=== PATIENT | female | born 1945 | race African-American/Black ===

== ENCOUNTER 2017-04-06 12:46 | Inpatient (IN) | payer OTHER ==
[~2017-04-06] VITALS: Ht 149.9 cm; Wt 44.0 kg
--- NOTE | ~2017-04-06 | EKG ---
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
--- NOTE | ~2017-04-06 | S ---
[facility] [place] [address] SURGICAL PATH RPT PROCEDURE Name: CHECOCINTHYAROYALChantelle Drake Room #: 313-P ADM IN M.R.#: [id number] Admission: 04/06/17 Date of : 49 Discharge: Report #: [id number] Path Case #: [id number] PATHOLOGY REPORT COLLECTION DATE: 04/06/2017 RECEIVED DATE: 04/08/2017 SUBMITTING PHYS: Dr. Ricardo Collins OTHER PHYS: Dr. Suzie Vallecillo SPECIMEN(S) RECEIVED: A.Small bowel B.Biopsy of gastritis to rule out Hpylori * * * * * * * * * * * * FINAL DIAGNOSIS: A. Small intestinal mucosa "small bowel": - No obvious diagnostic changes. - There is no evidence of acute cryptitis, granulomas, adenomatous change or malignancy. - There is no evidence of Sprue. B. Gastric biopsy, "biopsy of gastritis to rule out H. pylori": - Mild chronic reactive gastropathy with very minimal mild inflammation. - Immunoperoxidase for Helicobacter pylori is negative. (SHA:pit; 04/09/2017) PATHOLOGIST: Panfilo Vazquez M.D. REPORT ELECTRONICALLY SIGNED BY: Panfilo Vazquez M.D. DATE/TIME: 04/09/2017 12:46 * * * * * * * * * * * * GROSS PATHOLOGY: A. Received in formalin labeled "Uriel Kingsley, biopsy of small bowel to R/O celiac," are two segments of reynoso soft tissue measuring 0.5 x 0.5 x 0.1 cm in aggregate dimensions and ranging from 0.3 to 0.5 cm in maximum dimension. The specimen is submitted entirely in cassette A1. B. Received in formalin labeled "Uriel Kingsley, biopsy gastritis to R/O H. pylori," are two segments of reynoso soft tissue measuring 0.5 x 0.4 x 0.1 cm in aggregate dimensions and ranging from 0.3 to 0.5 cm in maximum dimension. The specimen is submitted entirely in cassette B1. (CAA; 04/08/2017) CLINICAL HISTORY: [address] [address] SURGICAL PATH RPT PROCEDURE Name: URIEL KINGSLEY Room #: 313-P ADM IN M.R.#: [id number] Admission: 04/06/17 Date of : 49 Discharge: Report #: [id number] Path Case #: [id number] Anemia, GI bleed A. R/O celiac B. R/O H. pylori INITIAL CPT CODE(S): A; 90193 B; 44094, 80989 Professional services performed by [facility] at [address], [place] [address] Technical services performed by [facility] at [address] [place] [address], [address] [address]. [facility] [address] [address] PHONE: [phone] DIRECTOR: Dheeraj W. Mary, M.D. * * * END OF REPORT * * *
[~2017-04-06 12:46] MED LIST: ALPHA LIPOIC A100 MG; AMANTADINE 100100 MG; ASPIR 8181 MG PO; ATORVASTATIN CA40 MG PO; CO Q-10100 MG; ENDUR-ACIN500 MG; FLONASE 0.05%50 MCG NASAL; FOLIC ACID 40400 MCG; IBUPROFEN 200200 M1; L-ARGININE500 MG; MAGNESIUM; MYSOLINE250 M1; NORCO 5-325 TA1 EACH PO; OMEGA-3 KRILL1 EAC4; OYSTER SHELL C500 MG; PTEROSTILBENE; TRAMADOL 50 MG50 MG PO; VITAMIN B1; VITAMIN B125000 MCG; VITAMIN B6; VITAMIN C500 M1 PO; VITAMIN D3400 UNIT; [UNRECOGNIZED DRUG - OTHER]
[2017-04-06 12:47] VITALS: BP 109/56
[2017-04-06 13:31] LABS: BASOPHILS 0.4 % (0.0-2.0); RBC 1.55 mil/uL (4.20-5.00)
[2017-04-06 13:33] LABS: ABSOLUTE NEUTROPHILS 3.8 thou/uL (1.4-8.2); EOSINOPHILS 1.2 % (0.0-3.0); LYMPHOCYTES 25.6 % (24.0-44.0); MCH 33.7 pg (26.0-34.0); MCHC 34.2 g/dL (28.0-37.0); MCV 98.6 fL (80.0-100.0); PLATELET COUNT 103 thou/uL (150-400); POLYS 66.8 % (36.0-66.0); RDW 13.9 % (10.5-14.5); WBC 5.7 thou/uL (4.0-11.0)
[2017-04-06 13:34] LABS: MANUAL DIFF NO
[2017-04-06 13:37] LABS: ANION GAP 8 mmol/L (7-16); BUN 34 mg/dL (7-18); CALCIUM 7.6 mg/dL (8.5-10.1); CHLORIDE 111 mmol/L (98-107); CO2 25 mmol/L (21-32); CREATININE 0.8 mg/dL (0.6-1.0); GLUCOSE 140 mg/dL (74-106); HEMATOCRIT 15.3 % (37.0-47.0); HEMOGLOBIN 5.2 gm/dL (12.0-15.0); POTASSIUM 3.9 mmol/L (3.5-5.1); SODIUM 144 mmol/L (136-145)
[2017-04-06 13:42] LABS: ALBUMIN 2.3 g/dL (3.4-5.0); ALKALINE PHOSPHATASE 69 U/L (46-116); SGOT 58 U/L (15-37); SGPT 76 U/L (30-65); TOTAL BILIRUBIN < 0.1 mg/dL (<0.1-1.0); TOTAL PROTEIN 5.1 g/dL (6.4-8.2)
[2017-04-06 16:07] VITALS: BP 108/63; BP 109/69; BP 113/65; BP 115/69; BP 96/54
[2017-04-06 16:27] LABS: URINE BILIRUBIN NEGATIVE (Negative); URINE BLOOD NEGATIVE (Negative); URINE COLOR YELLOW; URINE GLUCOSE-RANDOM* NEGATIVE (Negative); URINE KETONES NEGATIVE (Negative); URINE LEUKOCYTES-REFLEX NEGATIVE (Negative); URINE PROTEIN (DIPSTICK) NEGATIVE (Negative); URINE SPECIFIC GRAVITY 1.015 (1.003-1.035); URINE UROBILINOGEN 0.2 E.U./dl (0.2-1.0)
[2017-04-06 17:34] VITALS: BP 113/65
[2017-04-06 19:57] LABS: HEMATOCRIT 22.5 % (37.0-47.0)
[2017-04-06 20:00] LABS: HEMOGLOBIN 7.6 gm/dL (12.0-15.0)
[2017-04-06 22:18] VITALS: BP 97/59
[2017-04-07 03:16] VITALS: BP 79/48
[2017-04-07 04:49] VITALS: BP 79/41
[2017-04-07 04:56] VITALS: BP 92/48
[2017-04-07 05:26] LABS: MCV 95.5 fL (80.0-100.0)
[2017-04-07 05:29] LABS: MCHC 34.6 g/dL (28.0-37.0); RBC 1.94 mil/uL (4.20-5.00); RDW 14.3 % (10.5-14.5); WBC 7.3 thou/uL (4.0-11.0)
[2017-04-07 05:38] LABS: HEMATOCRIT 18.5 % (37.0-47.0); HEMOGLOBIN 6.4 gm/dL (12.0-15.0)
[2017-04-07 05:45] LABS: ALBUMIN 2.2 g/dL (3.4-5.0); CALCIUM 7.3 mg/dL (8.5-10.1); CREATININE 0.8 mg/dL (0.6-1.0); POTASSIUM 3.4 mmol/L (3.5-5.1); TOTAL BILIRUBIN 0.1 mg/dL (<0.1-1.0); TOTAL PROTEIN 4.8 g/dL (6.4-8.2)
[2017-04-07 07:35] VITALS: BP 83/49
[2017-04-07 07:39] VITALS: BP 86/51
[2017-04-07 17:45] LABS: HEMATOCRIT 24.2 % (37.0-47.0); HEMOGLOBIN 8.3 gm/dL (12.0-15.0); MCH 32.9 pg (26.0-34.0); MCHC 34.2 g/dL (28.0-37.0); MCV 96.1 fL (80.0-100.0); RBC 2.51 mil/uL (4.20-5.00); RDW 14.7 % (10.5-14.5); WBC 6.3 thou/uL (4.0-11.0)
[2017-04-07 19:51] VITALS: BP 106/63
[2017-04-08 04:34] VITALS: BP 96/56
[2017-04-08 07:11] LABS: HEMATOCRIT 23.4 % (37.0-47.0); MCH 32.4 pg (26.0-34.0); MCHC 34.3 g/dL (28.0-37.0); MCV 94.4 fL (80.0-100.0); RBC 2.48 mil/uL (4.20-5.00); RDW 14.8 % (10.5-14.5); WBC 6.9 thou/uL (4.0-11.0)
[2017-04-08 07:20] LABS: CALCIUM 7.2 mg/dL (8.5-10.1); CREATININE 0.6 mg/dL (0.6-1.0); POTASSIUM 4.1 mmol/L (3.5-5.1)
[2017-04-08 09:24] VITALS: BP 127/72
[2017-04-08 15:20] VITALS: BP 109/74
[2017-04-08 20:00] VITALS: BP 134/72
[2017-04-09 04:00] VITALS: BP 128/78
[2017-04-09 04:36] LABS: HEMATOCRIT 25.6 % (37.0-47.0); HEMOGLOBIN 8.8 gm/dL (12.0-15.0); MCH 32.7 pg (26.0-34.0); MCHC 34.5 g/dL (28.0-37.0); MCV 94.9 fL (80.0-100.0); RBC 2.69 mil/uL (4.20-5.00); RDW 15.3 % (10.5-14.5); WBC 6.7 thou/uL (4.0-11.0)
[2017-04-09 08:00] VITALS: BP 116/61
[2017-04-09 16:00] VITALS: BP 116/67
[2017-04-09 20:30] VITALS: BP 147/79
[2017-04-10 03:30] VITALS: BP 133/71
[2017-04-10 07:38] VITALS: BP 143/77
[2017-04-10 13:08] LABS: HEMATOCRIT 24.8 % (37.0-47.0); HEMOGLOBIN 8.6 gm/dL (12.0-15.0); MCH 32.4 pg (26.0-34.0); MCHC 34.5 g/dL (28.0-37.0); MCV 93.8 fL (80.0-100.0); RBC 2.64 mil/uL (4.20-5.00); RDW 14.8 % (10.5-14.5); WBC 6.4 thou/uL (4.0-11.0)
[2017-04-10 13:12] LABS: CALCIUM 8.1 mg/dL (8.5-10.1); CREATININE 0.6 mg/dL (0.6-1.0); POTASSIUM 3.3 mmol/L (3.5-5.1)
[2017-04-10] MEDS ORDERED: NEXIUM40 MG PO (13:13)
[2017-04-10] MEDS ORDERED: ACIDOPHILUS1 EAC4 PO (13:13)
[2017-04-10] MEDS ORDERED: COLACE100 MG PO (13:13)
[2017-04-10 13:15] LABS: % SATURATION 7 % (20-39); IRON 17 ug/dL (50-170); TIBC 234 ug/dL (250-450); UIBC 217 ug/dL
[2017-04-10] MEDS ORDERED: FLONASE 0.05%50 MCG NASAL (13:26)
[2017-04-10] MEDS ORDERED: MIRALAX17 GM PO (13:26)
[2017-04-10 13:45] LABS: FOLIC ACID 17.9 ng/mL (8.6-58.9)
[2017-04-10 17:14] VITALS: BP 143/71
[2017-04-10 17:15] VITALS: BP 143/71
[2017-04-10 20:45] VITALS: BP 138/80
[2017-04-11 05:30] VITALS: BP 139/78
[2017-04-11 08:00] VITALS: BP 120/79
[2017-04-11 10:57] LABS: HEMATOCRIT 24.2 % (37.0-47.0); HEMOGLOBIN 8.2 gm/dL (12.0-15.0); MCH 31.9 pg (26.0-34.0); MCHC 33.7 g/dL (28.0-37.0); MCV 94.5 fL (80.0-100.0); RBC 2.56 mil/uL (4.20-5.00); RDW 14.8 % (10.5-14.5); WBC 4.8 thou/uL (4.0-11.0)
[2017-04-11 11:12] LABS: ALBUMIN 2.3 g/dL (3.4-5.0); CALCIUM 8.1 mg/dL (8.5-10.1); CREATININE 0.7 mg/dL (0.6-1.0); POTASSIUM 3.4 mmol/L (3.5-5.1); TOTAL BILIRUBIN 0.2 mg/dL (<0.1-1.0); TOTAL PROTEIN 5.9 g/dL (6.4-8.2)
[2017-04-11 15:52] VITALS: BP 143/71
== END 2017-04-11 16:33 | disposition home health service (06) | DRG 377 ==
LOC: ER 12:46 → EROBS 15:13 → 3N 15:13
PROVIDERS: Internal Medicine; Nurse Practitioner Acute Care; Nurse Practitioner Adult Health; Physician Assistant
PROC: 05H633Z Insertion of Infusion Device into Left Subclavian Vein, Percutaneous Approach (ICD-10-PCS; 2017-04-07)
PROC: 30233N1 Transfusion of Nonautologous Red Blood Cells into Peripheral Vein, Percutaneous Approach (ICD-10-PCS; 2017-04-07)
PROC: 0DB68ZX Excision of Stomach, Via Natural or Artificial Opening Endoscopic, Diagnostic (ICD-10-PCS; principal; 2017-04-08)
DX: K92.2 Gastrointestinal hemorrhage, unspecified (principal); E43 Unspecified severe protein-calorie malnutrition; E87.2 Acidosis; I24.9 Acute ischemic heart disease, unspecified; D64.9 Anemia, unspecified; G35 Multiple sclerosis; K29.70 Gastritis, unspecified, without bleeding; K57.30 Diverticulosis of large intestine without perforation or abscess without bleeding; K44.9 Diaphragmatic hernia without obstruction or gangrene; K22.2 Esophageal obstruction; R13.10 Dysphagia, unspecified; W18.39XA Other fall on same level, initial encounter; Y93.89 Activity, other specified; Y92.89 Other specified places as the place of occurrence of the external cause; Z79.899 Other long term (current) drug therapy; Z88.8 Allergy status to other drugs, medicaments and biological substances; Y99.8 Other external cause status
CPT/HCPCS: 10096; 27001; 62110; 62900; 70005

== ENCOUNTER 2017-04-16 21:22 | Inpatient (IN) | payer OTHER ==
[~2017-04-16] VITALS: Ht 149.9 cm; Wt 44.9 kg
--- NOTE | ~2017-04-16 | 2DMMODE ---
[facility] [address] [address] [place] [employer] [address] 2 D/M-MODE ECHOCARDIOGRAM Name: URIEL KINGSLEY Room #: 451-P [facility] IN ..#: [id number] Admission: 04/16/17 Attend Phys: Ricardo Collins, Discharge: Date of : 49 Date of Service: 04/18/17 1044 Report #: [id number] THIS REPORT FOR: //name// APPROVED REPORT Study performed: 04/18/2017 08:26:48 EXAM: Comprehensive 2D, Doppler, and color-flow Echocardiogram Patient Location: Bedside Room #: [facility] Status: routine Other Information Study Quality: Good Indications Pulmonary Embolism Evaluate RV function. 2D Dimensions RVDd: 30.01 mm LVEF(%): 75.02 (>50%) IVSd: 9.83 (7-11mm) LVOT Diam: 19.17 (18-24mm) LVDd: 36.60 mm PWd: 10.37 (7-11mm) LVDs: 20.85 (25-40mm) Aortic Root: 29.60 mm Hsieh's LVEF: 75.02 % Volumes Left Atrial Volume (Systole) Single Plane 4CH: 18.72 mL Single Plane 2CH: 17.60 mL LA ESV Index: 15.00 mL/m2 Aortic Valve AoV Peak Dev.: 1.63 m/s AO Peak Gr.: 10.61 mmHg LVOT Max P.20 mmHg LVOT Max V: 1.43 m/s SILVER Vmax: 2.54 cm2 Mitral Valve E/A Ratio: 0.8 MV Decel. Time: 120.29 ms MV E Max Dev.: 0.78 m/s MV A Dev.: 1.01 m/s MV PHT: 34.88 ms [facility] [employer] [place] [address] 2 D/M-MODE ECHOCARDIOGRAM Name: TEETEEURIEL Room #: 451-P [facility] IN ..#: [id number] Admission: 04/16/17 Attend Phys: Ricardo Collins, Discharge: Date of : 49 Date of Service: 04/18/17 1044 Report #: [id number] IVRT: 41.52 ms Pulmonary Valve PV Peak Dev.: 1.00 m/s PV Peak Gr.: 4.03 mmHg Tricuspid Valve TR Peak Dev.: 3.28 m/s RAP Estimate: 5.00 mmHg TR Peak Gr.: 43.11 mmHg PA Pressure: 48.00 mmHg Left Ventricle The left ventricle is normal size. There is normal LV segmental wall motion. There is normal left ventricular wall thickness. Left ventricular systolic function is normal. LVEF is 65%. Grade I - abnormal relaxation pattern. Right Ventricle The right ventricle is normal size. The right ventricular systolic function is normal. Atria The left atrium size is normal. The right atrium size is normal. Aortic Valve The aortic valve is normal in structure. No aortic regurgitation is present. There is no aortic valvular stenosis. Mitral Valve The mitral valve is normal in structure. There is no mitral valve regurgitation noted. No evidence of mitral valve stenosis. Tricuspid Valve The tricuspid valve is normal in structure. There is mild tricuspid regurgitation. The right atrial pressure is estimated at 5 mmHg. There is moderate pulmonary hypertension with an estimated PAP of 48mmHg. Pulmonic Valve The pulmonary valve is normal in structure. There is no pulmonic valvular regurgitation. Great Vessels The aortic root is normal in size. Aortic arch is not well visualized. IVC is normal in size and collapses >50% with inspiration. [address] [address] 2 D/M-MODE ECHOCARDIOGRAM Name: LINDALAMONTURIEL Room #: 451-P [facility] IN [facility]#: [id number] Admission: 04/16/17 Attend Phys: Ricardo Collins, Discharge: Date of : 49 Date of Service: 04/18/17 1044 Report #: [id number] Pericardium There is no pericardial effusion. <Conclusion> The left ventricle is normal size. Left ventricular systolic function is normal. Grade I - abnormal relaxation pattern. The right ventricle is normal size. The left atrium size is normal. The aortic valve is normal in structure. The mitral valve is normal in structure. There is mild tricuspid regurgitation. The right atrial pressure is estimated at 5 mmHg. There is moderate pulmonary hypertension with an estimated PAP of 48mmHg. <ELECTRONICALLY SIGNED> By: Jared Sarabia MD 04/18/17 1044 1044 1044 Jared Sarabia MD /INF
--- NOTE | ~2017-04-16 | HC ---
[facility] [place] [address] CONSULTATION Name: URIEL KINGSLEY Vidal Room #: 451-P ADM IN M.R.#: [id number] Admission: 04/16/17 Attend Phys: Ricardo Collins MD Discharge: Date of : 49 Report #: [id number] THIS REPORT FOR: //name// [facility] DATE OF SERVICE: 04/17/2017 REFERRING PROVIDER: Dr. Ricardo Collins REASON FOR CONSULTATION: Pulmonary embolism. CHIEF COMPLAINT: Chest pain, fatigue. HISTORY OF PRESENT ILLNESS: Our group was asked to see the patient in consultation while hospitalized at [facility], a pleasant 71-year-old woman without any past pulmonary history, who presented to the Emergency Department with complaints of chest pain, generalized fatigue and weakness, was found on CT scan of the chest to have multiple pulmonary emboli and started on heparin anticoagulant therapy. Of note, the patient was recently hospitalized just 1 week ago for a weakness, falls and profound anemia requiring 2 unit packed cell transfusion. Prior workup was inconclusive for a potential source of blood loss and was to undergo PillCam evaluation. No prior history of venous thromboembolism. No prior history of hypercoagulable conditions. Currently, is resting comfortably in bed, does have a history of multiple sclerosis with some limited mobility. ALLERGIES: CARBAMAZEPINE. PAST MEDICAL HISTORY: 1. History of multiple sclerosis, predominantly manifested as what sounds like a sensory neuropathy. 2. Recent anemia under evaluation. 3. History of small bowel resection. OUTPATIENT MEDICATIONS: Include tramadol, L-arginine, folic acid, alpha lipoic acid, niacin, Coenzyme Q, vitamin B12, vitamin B6, vitamin B1, amantadine, primidone. SOCIAL HISTORY: The patient is an ex-smoker, quitting several years ago. No alcohol consumption. 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 FAMILY HISTORY: Negative for any significant pulmonary disease. [facility] [address] [place] [address] CONSULTATION Name: ROYAL KINGSLEYChantelle Drake Room #: 451-P [facility] IN ..#: [id number] Admission: 04/16/17 Attend Phys: Ricardo Collins MD Discharge: Date of : 49 Report #: [id number] REVIEW OF SYSTEMS: CONSTITUTIONAL: Some low grade fever at home, no chills or rigors. ENT: No upper respiratory congestion, rhinorrhea or dysphagia. CARDIOVASCULAR: Some right lower chest pain associated with deep inspiration, somewhat pleuritic in nature. No palpitations. GASTROINTESTINAL: Some nausea, no vomiting, diarrhea, constipation or abdominal pain. GENITOURINARY: No dysuria, no frequency. INTEGUMENT: Denies any new rash. MUSCULOSKELETAL/NEUROLOGIC: Some generalized weakness associated with her multiple sclerosis with some sensory deficits in the upper and lower extremities at her baseline. PHYSICAL EXAMINATION: VITAL SIGNS: Temperature is 38.0, pulse 117, respiratory rate 20, blood pressure 138/84, oxygen saturation 98% on 2 liters. GENERAL: This is a pleasant elderly woman in no distress. HEENT: Clear oropharynx. Mallampati 1 airway, no thrush. NECK: Supple, no lymphadenopathy. LUNGS: Diminished, but clear. No wheezes or crackles. CARDIOVASCULAR: Heart regular. No murmurs noted. ABDOMEN: Soft, nontender, no masses, no hepatosplenomegaly. EXTREMITIES: Warm with trace edema, 2+ pulses. LABORATORY DATA: White blood cell count 7000, hemoglobin 8.4, hematocrit 25, platelet count 248. Sodium 138, potassium 3.5, chloride 105, bicarbonate 24, BUN 8, creatinine 0.8, glucose 100, ALT and AST are elevated, but down trending from yesterday evening labs. Hepatitis panel is pending. IMPRESSION: 1. Pulmonary embolism, negative lower extremity venous Dopplers, still would place IVC filter given some contraindications, ongoing anticoagulation due to recent GI bleed that still does not have an etiology elicited. 2. Recent gastrointestinal bleed, check consult note. 3. Elevated liver enzymes, ultrasound of abdomen pending. 4. Prior history of tobacco use. 5. History of multiple sclerosis. 6. Generalized weakness. SUGGESTIONS: 1. Trend hemoglobin. 2. Ultrasound abdomen. 3. IVC filter placement. 4. Stop anticoagulation once IVC filter in place. 5. Continue to monitor. 6. We will follow. [address] [address] CONSULTATION Name: URIEL KINGSLEY Vidal Room #: 451-P [facility] IN M.R.#: [id number] Admission: 04/16/17 Attend Phys: Ricardo Collins MD Discharge: Date of : 49 Report #: [id number] Thank you for requesting our suggestions. This case was discussed earlier in the day with Dr. Collins. By: 1611 1820 Geraldo Vallejo MD /kassi
--- NOTE | ~2017-04-16 | EKG ---
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 : 1945 Requested By: Phong Gandhi Order Number: [id number] MD: Ajit Shepard Measurements Intervals [place] Rate: 124 P: 52 ME: 159 QRS: -22 QRSD: 78 T: 52 QT: 311 QTc: 447 Interpretive Statements Sinus tachycardia Abnormal R-wave progression, early transition Inferior infarct, old Compared to ECG 04/06/2017 13:54:21 Inferior Q waves are now present Electronically Signed On 04-17-2017 17:11:30 CDT by Ajit Shepard [email or web address] <ELECTRONICALLY SIGNED> By: Ajit Shepard MD, [facility] 04/17/17 1711 26 26 Ajit Shepard MD, [facility] /EPI
[~2017-04-16 21:22] MED LIST changes: +ACIDOPHILUS1 EAC4 PO; +COLACE100 MG PO; +MIRALAX17 GM PO; +NEXIUM40 MG PO
[2017-04-16 21:23] VITALS: BP 113/70
[2017-04-16 21:43] LABS: URINE BILIRUBIN NEGATIVE (Negative); URINE BLOOD NEGATIVE (Negative); URINE COLOR YELLOW; URINE GLUCOSE-RANDOM* NEGATIVE (Negative); URINE KETONES NEGATIVE (Negative); URINE NITRITE NEGATIVE (Negative); URINE PROTEIN (DIPSTICK) 1+ (Negative); URINE SPECIFIC GRAVITY 1.025 (1.003-1.035); URINE UROBILINOGEN 0.2 E.U./dl (0.2-1.0)
[2017-04-16 21:56] LABS: ABSOLUTE NEUTROPHILS 7.5 thou/uL (1.4-8.2); BASOPHILS 0.7 % (0.0-2.0); EOSINOPHILS 0.2 % (0.0-3.0); HEMATOCRIT 26.1 % (37.0-47.0); LYMPHOCYTES 9.6 % (24.0-44.0); MCH 30.8 pg (26.0-34.0); MCHC 34.5 g/dL (28.0-37.0); MCV 89.2 fL (80.0-100.0); MONOCYTES 9.4 % (1.0-8.0); PLATELET COUNT 269 thou/uL (150-400); POLYS 80.1 % (36.0-66.0); RBC 2.93 mil/uL (4.20-5.00); WBC 9.3 thou/uL (4.0-11.0)
[2017-04-16 22:06] LABS: MANUAL DIFF NO
[2017-04-16 22:10] LABS: SQUAMOUS >10 Many /LPF (0-3)
[2017-04-16 22:11] LABS: BACTERIA 1-9 Few /HPF (None Seen); CASTS None Seen /LPF (None Seen); CRYSTALS None Seen /LPF (None Seen); URINE RBC 0-2 Rare /HPF (0-2); URINE WBC 0-5 Rare /HPF (0-5)
[2017-04-16 22:11] LABS: ANION GAP 7 mmol/L (7-16); BUN 12 mg/dL (7-18); CALCIUM 8.6 mg/dL (8.5-10.1); CHLORIDE 102 mmol/L (98-107); CO2 25 mmol/L (21-32); CREATININE 0.8 mg/dL (0.6-1.0); GLUCOSE 111 mg/dL (74-106); POTASSIUM 4.3 mmol/L (3.5-5.1); SODIUM 134 mmol/L (136-145)
[2017-04-16 22:17] LABS: ALBUMIN 2.5 g/dL (3.4-5.0); ALKALINE PHOSPHATASE 110 U/L (46-116); DIRECT BILIRUBIN < 0.1 mg/dL (<0.1-0.3); SGOT 160 U/L (15-37); SGPT 155 U/L (30-65); TOTAL BILIRUBIN 0.3 mg/dL (<0.1-1.0); TOTAL PROTEIN 7.2 g/dL (6.4-8.2)
[2017-04-17] VITALS (9 sets, daily range): BP systolic 110–143; BP diastolic 64–84
[2017-04-17 05:30] LABS: HEMATOCRIT 24.9 % (37.0-47.0); HEMOGLOBIN 8.4 gm/dL (12.0-15.0); MCH 30.5 pg (26.0-34.0); MCHC 33.6 g/dL (28.0-37.0); MCV 90.8 fL (80.0-100.0); RBC 2.74 mil/uL (4.20-5.00); RDW 15.1 % (10.5-14.5); WBC 6.5 thou/uL (4.0-11.0)
[2017-04-17 05:52] LABS: ALBUMIN 2.1 g/dL (3.4-5.0); CALCIUM 8.1 mg/dL (8.5-10.1); CREATININE 0.8 mg/dL (0.6-1.0); POTASSIUM 3.5 mmol/L (3.5-5.1); TOTAL BILIRUBIN 0.3 mg/dL (<0.1-1.0); TOTAL PROTEIN 6.2 g/dL (6.4-8.2)
[2017-04-17 05:55] LABS: APTT 26.8 Seconds (24.5-32.8); INR 1.1; PROTIME 11.2 Seconds (9.3-11.4)
[2017-04-17 13:17] LABS: HEMATOCRIT 22.4 % (37.0-47.0); HEMOGLOBIN 7.6 gm/dL (12.0-15.0)
[2017-04-17 17:11] LABS: HEPATITIS C VIRUS AB 0.1 (0.0-0.9)
[2017-04-17 19:57] LABS: HEMATOCRIT 25.2 % (37.0-47.0); HEMOGLOBIN 8.6 gm/dL (12.0-15.0)
[2017-04-17 23:21] LABS: HEMATOCRIT 22.9 % (37.0-47.0); HEMOGLOBIN 7.7 gm/dL (12.0-15.0)
[2017-04-18 03:24] LABS: ALBUMIN 1.8 g/dL (3.4-5.0); ALKALINE PHOSPHATASE 90 U/L (46-116); DIRECT BILIRUBIN < 0.1 mg/dL (<0.1-0.3); SGOT 112 U/L (15-37); SGPT 122 U/L (30-65); TOTAL BILIRUBIN 0.3 mg/dL (<0.1-1.0); TOTAL PROTEIN 5.8 g/dL (6.4-8.2)
[2017-04-18 03:39] VITALS: BP 119/73
[2017-04-18 07:09] VITALS: BP 126/84
[2017-04-18 12:23] VITALS: BP 130/74
[2017-04-18 15:08] VITALS: BP 135/73
[2017-04-18 18:54] LABS: HEMATOCRIT 22.7 % (37.0-47.0); HEMOGLOBIN 7.7 gm/dL (12.0-15.0)
[2017-04-18 19:07] VITALS: BP 129/77
[2017-04-19 05:11] VITALS: BP 124/81
[2017-04-19 06:14] LABS: HEMATOCRIT 22.3 % (37.0-47.0); HEMOGLOBIN 7.4 gm/dL (12.0-15.0)
[2017-04-19 06:38] LABS: ALKALINE PHOSPHATASE 90 U/L (46-116); DIRECT BILIRUBIN < 0.1 mg/dL (<0.1-0.3); SGOT 100 U/L (15-37); SGPT 120 U/L (30-65); TOTAL BILIRUBIN 0.3 mg/dL (<0.1-1.0); TOTAL PROTEIN 6.2 g/dL (6.4-8.2)
[2017-04-19 07:17] VITALS: BP 124/80
[2017-04-19 12:00] VITALS: BP 122/62
[2017-04-19 16:00] VITALS: BP 151/87
[2017-04-19 19:21] VITALS: BP 150/85
[2017-04-20 03:58] VITALS: BP 126/78
[2017-04-20 06:11] LABS: HEMATOCRIT 20.6 % (37.0-47.0); MCHC 34.2 g/dL (28.0-37.0); MCV 87.8 fL (80.0-100.0); RBC 2.34 mil/uL (4.20-5.00); RDW 16.1 % (10.5-14.5); WBC 5.5 thou/uL (4.0-11.0)
[2017-04-20 06:58] VITALS: BP 129/84
[2017-04-20 11:28] VITALS: BP 135/82
[2017-04-20 15:51] VITALS: BP 146/81
[2017-04-20 18:56] VITALS: BP 129/79
[2017-04-21 05:13] LABS: HEMATOCRIT 20.9 % (37.0-47.0); HEMOGLOBIN 7.2 gm/dL (12.0-15.0); MCH 30.7 pg (26.0-34.0); MCHC 34.6 g/dL (28.0-37.0); MCV 88.7 fL (80.0-100.0); RBC 2.35 mil/uL (4.20-5.00); RDW 16.2 % (10.5-14.5); WBC 6.3 thou/uL (4.0-11.0)
[2017-04-21 07:37] VITALS: BP 122/79
[2017-04-21 15:24] VITALS: BP 135/75
[2017-04-21 16:57] VITALS: BP 118/64
[2017-04-21 21:18] VITALS: BP 112/67
[2017-04-22 03:30] VITALS: BP 119/66
[2017-04-22 04:49] LABS: HEMATOCRIT 22.3 % (37.0-47.0); HEMOGLOBIN 7.5 gm/dL (12.0-15.0)
[2017-04-22 08:00] VITALS: BP 114/81
[2017-04-22] MEDS ORDERED: TYLENOL325 MG PO (12:39)
[2017-04-22] MEDS ORDERED: DUONEB 2.5-0.5 M3 ML INH (12:39)
[2017-04-22] MEDS ORDERED: CIPRO500 MG PO (12:39)
[2017-04-22] MEDS ORDERED: MUCINEX TA600 MG/TA2 PO (12:39)
[2017-04-22] MEDS ORDERED: CALTRATE-600 W1 EACH PO (12:39)
[2017-04-22 16:17] VITALS: BP 114/81
== END 2017-04-22 15:50 | DRG 853 ==
LOC: ER 21:22 → 4W 22:47 → EROBS 22:47 → 4W 04-17 00:29 → 4S 04-21 16:46
PROVIDERS: Internal Medicine; Internal Medicine Gastroenterology; Nurse Practitioner; Nurse Practitioner Acute Care
PROC: 06H03DZ Insertion of Intraluminal Device into Inferior Vena Cava, Percutaneous Approach (ICD-10-PCS; principal; 2017-04-17)
DX: A41.9 Sepsis, unspecified organism (principal); J18.9 Pneumonia, unspecified organism; I26.99 Other pulmonary embolism without acute cor pulmonale; K92.2 Gastrointestinal hemorrhage, unspecified; D62 Acute posthemorrhagic anemia; E46 Unspecified protein-calorie malnutrition; G35 Multiple sclerosis; R74.0 Nonspecific elevation of levels of transaminase and lactic acid dehydrogenase [LDH]; K31.84 Gastroparesis; Z79.899 Other long term (current) drug therapy; Z88.8 Allergy status to other drugs, medicaments and biological substances; Z87.891 Personal history of nicotine dependence; Z68.20 Body mass index [BMI] 20.0-20.9, adult
CPT/HCPCS: 10045; 10100; 27001

== ENCOUNTER → 2017-05-17 | Outpatient (CLI) | payer OTHER ==
[~2017-05-17] MED LIST changes: +CALTRATE-600 W1 EACH PO; +CIPRO500 MG PO; +DUONEB 2.5-0.5 M3 ML INH; +MUCINEX TA600 MG/TA2 PO; +TYLENOL325 MG PO
== END ==
LOC: RAD 08:12
DX: J44.9 Chronic obstructive pulmonary disease, unspecified (principal); J90 Pleural effusion, not elsewhere classified; J18.9 Pneumonia, unspecified organism; I26.99 Other pulmonary embolism without acute cor pulmonale; J98.11 Atelectasis

== ENCOUNTER 2017-05-21 13:05 | Inpatient (IN) | payer OTHER ==
[~2017-05-21] VITALS: Ht 147.3 cm; Wt 45.8 kg
[2017-05-21 13:22] VITALS: BP 125/75
[2017-05-21 14:00] LABS: URINE BILIRUBIN NEGATIVE (Negative); URINE BLOOD NEGATIVE (Negative); URINE COLOR YELLOW; URINE GLUCOSE-RANDOM* NEGATIVE (Negative); URINE KETONES NEGATIVE (Negative); URINE LEUKOCYTES-REFLEX NEGATIVE (Negative); URINE PROTEIN (DIPSTICK) NEGATIVE (Negative); URINE UROBILINOGEN 0.2 E.U./dl (0.2-1.0)
[2017-05-21] MEDS ORDERED: FISH OIL 1,001000 M2 PO (14:50)
[2017-05-21] MEDS ORDERED: COLACE100 MG PO (14:50)
[2017-05-21] MEDS ORDERED: IRON325 PO (14:52)
[2017-05-21] MEDS ORDERED: BUSPIRONE HCL10 MG PO (14:52)
[2017-05-21 14:57] LABS: ABSOLUTE NEUTROPHILS 4.3 thou/uL (1.4-8.2); BASOPHILS 0.9 % (0.0-2.0); HEMATOCRIT 32.9 % (37.0-47.0); HEMOGLOBIN 10.8 gm/dL (12.0-15.0); LYMPHOCYTES 14.9 % (24.0-44.0); MCH 30.8 pg (26.0-34.0); MCHC 32.9 g/dL (28.0-37.0); MCV 93.6 fL (80.0-100.0); MONOCYTES 8.1 % (1.0-8.0); PLATELET COUNT 189 thou/uL (150-400); POLYS 73.1 % (36.0-66.0); RBC 3.51 mil/uL (4.20-5.00); RDW 19.1 % (10.5-14.5); WBC 5.9 thou/uL (4.0-11.0)
[2017-05-21 14:59] LABS: MANUAL DIFF NO
[2017-05-21 15:06] LABS: CALCIUM 9.3 mg/dL (8.5-10.1); CREATININE 0.6 mg/dL (0.6-1.0); POTASSIUM 4.2 mmol/L (3.5-5.1)
[2017-05-21 15:11] LABS: TOTAL BILIRUBIN 0.2 mg/dL (<0.1-1.0); TOTAL PROTEIN 7.1 g/dL (6.4-8.2)
[2017-05-21 17:33] VITALS: BP 139/79
[2017-05-21 17:49] VITALS: BP 139/79
[2017-05-21 18:00] VITALS: BP 135/87
[2017-05-21 20:30] VITALS: BP 127/73
[2017-05-21] MEDS ORDERED: MUCINEX TA600 MG/TA2 PO (22:02)
[2017-05-22 05:00] VITALS: BP 121/73
[2017-05-22 06:13] LABS: RBC 3.4 mil/uL (4.20-5.00)
[2017-05-22 06:19] LABS: HEMATOCRIT 31.4 % (37.0-47.0); HEMOGLOBIN 10.5 gm/dL (12.0-15.0); MCHC 33.5 g/dL (28.0-37.0); MCV 92.5 fL (80.0-100.0); RDW 18.1 % (10.5-14.5); WBC 9.2 thou/uL (4.0-11.0)
[2017-05-22 06:22] LABS: CALCIUM 9.2 mg/dL (8.5-10.1); CREATININE 0.4 mg/dL (0.6-1.0); POTASSIUM 4.1 mmol/L (3.5-5.1)
[2017-05-22 07:22] VITALS: BP 105/65
[2017-05-22 16:27] VITALS: BP 133/72
[2017-05-22 19:23] VITALS: BP 115/62
[2017-05-23 04:25] VITALS: BP 112/61
[2017-05-23 07:56] VITALS: BP 127/61
[2017-05-23 15:38] VITALS: BP 129/67
[2017-05-23 20:00] VITALS: BP 130/71
[2017-05-24 06:00] VITALS: BP 129/87
[2017-05-24 07:58] LABS: HEMOGLOBIN 10.8 gm/dL (12.0-15.0); MCH 31.1 pg (26.0-34.0); MCHC 33.7 g/dL (28.0-37.0); RBC 3.47 mil/uL (4.20-5.00); RDW 17.5 % (10.5-14.5)
[2017-05-24 08:07] VITALS: BP 153/83
[2017-05-24 08:18] LABS: CALCIUM 9.2 mg/dL (8.5-10.1); CREATININE 0.7 mg/dL (0.6-1.0); MAGNESIUM 1.5 mg/dL (1.8-2.4); POTASSIUM 3.9 mmol/L (3.5-5.1)
[2017-05-24 15:43] VITALS: BP 135/89
[2017-05-24 19:40] VITALS: BP 128/79
[2017-05-25 03:34] VITALS: BP 123/83
[2017-05-25 03:54] LABS: CALCIUM 8.8 mg/dL (8.5-10.1); CREATININE 0.7 mg/dL (0.6-1.0); POTASSIUM 3.5 mmol/L (3.5-5.1)
[2017-05-25 04:33] LABS: HEMATOCRIT 30.5 % (37.0-47.0); HEMOGLOBIN 10.2 gm/dL (12.0-15.0); MCH 30.8 pg (26.0-34.0); MCHC 33.5 g/dL (28.0-37.0); RBC 3.31 mil/uL (4.20-5.00); RDW 17.8 % (10.5-14.5); WBC 4.3 thou/uL (4.0-11.0)
[2017-05-25 08:07] VITALS: BP 131/73
[2017-05-25 18:36] VITALS: BP 130/74
[2017-05-25 21:38] VITALS: BP 142/77
[2017-05-26 04:46] VITALS: BP 130/80
[2017-05-26 06:04] LABS: BASOPHILS 1.1 % (0.0-2.0); EOSINOPHILS 5.8 % (0.0-3.0); HEMATOCRIT 31.3 % (37.0-47.0); HEMOGLOBIN 10.4 gm/dL (12.0-15.0); LYMPHOCYTES 27.9 % (24.0-44.0); MCH 30.9 pg (26.0-34.0); MCHC 33.2 g/dL (28.0-37.0); MCV 92.9 fL (80.0-100.0); PLATELET COUNT 218 thou/uL (150-400); POLYS 56.2 % (36.0-66.0); RBC 3.36 mil/uL (4.20-5.00); RDW 18.1 % (10.5-14.5); WBC 3.5 thou/uL (4.0-11.0)
[2017-05-26 06:07] LABS: MANUAL DIFF NO
[2017-05-26 06:18] LABS: ALBUMIN 2.4 g/dL (3.4-5.0); ALKALINE PHOSPHATASE 114 U/L (46-116); ANION GAP 10 mmol/L (7-16); BUN 10 mg/dL (7-18); CALCIUM 8.8 mg/dL (8.5-10.1); CHLORIDE 107 mmol/L (98-107); CO2 23 mmol/L (21-32); CREATININE 0.5 mg/dL (0.6-1.0); GLUCOSE 114 mg/dL (74-106); POTASSIUM 3.8 mmol/L (3.5-5.1); SGOT 39 U/L (15-37); SGPT 47 U/L (30-65); SODIUM 140 mmol/L (136-145); TOTAL BILIRUBIN < 0.1 mg/dL (<0.1-1.0); TOTAL PROTEIN 6.5 g/dL (6.4-8.2)
[2017-05-26 08:00] VITALS: BP 138/78
[2017-05-26] MEDS ORDERED: NORCO 5-325 TA1 EACH PO (12:09)
[2017-05-26] MEDS ORDERED: XARELTO15 MG PO (12:18)
[2017-05-26] MEDS ORDERED: SENNA PO (12:18)
[2017-05-26] MEDS ORDERED: MAGNESIUM OXID400 MG PO (12:18)
[2017-05-26 16:00] VITALS: BP 119/73
[2017-05-26 19:34] VITALS: BP 133/80
[2017-05-27 01:02] VITALS: BP 133/80
[2017-05-27 04:19] VITALS: BP 129/76
[2017-05-27 07:40] VITALS: BP 113/69
[2017-05-27 07:44] VITALS: BP 163/64
[2017-05-27 15:37] VITALS: BP 135/71
[2017-05-27 20:35] VITALS: BP 127/71
[2017-05-28 04:28] VITALS: BP 160/70
[2017-05-28 07:41] VITALS: BP 128/81
[2017-05-28 18:12] VITALS: BP 118/72
[2017-05-28 20:30] VITALS: BP 125/65
[2017-05-29 04:30] VITALS: BP 143/72
[2017-05-29 06:19] LABS: ABSOLUTE NEUTROPHILS 2.8 thou/uL (1.4-8.2); BASOPHILS 0.9 % (0.0-2.0); EOSINOPHILS 3.6 % (0.0-3.0); HEMATOCRIT 32.8 % (37.0-47.0); HEMOGLOBIN 10.9 gm/dL (12.0-15.0); MCH 30.4 pg (26.0-34.0); MCHC 33.1 g/dL (28.0-37.0); MCV 91.6 fL (80.0-100.0); MONOCYTES 9.6 % (1.0-8.0); PLATELET COUNT 256 thou/uL (150-400); POLYS 63.9 % (36.0-66.0); RBC 3.58 mil/uL (4.20-5.00); RDW 17.6 % (10.5-14.5); WBC 4.4 thou/uL (4.0-11.0)
[2017-05-29 06:36] LABS: ALBUMIN 2.6 g/dL (3.4-5.0); CALCIUM 9.4 mg/dL (8.5-10.1); CREATININE 0.7 mg/dL (0.6-1.0); POTASSIUM 3.7 mmol/L (3.5-5.1); TOTAL BILIRUBIN 0.2 mg/dL (<0.1-1.0)
[2017-05-29 06:40] LABS: MANUAL DIFF NO
[2017-05-29 07:58] VITALS: BP 159/69
== END 2017-05-29 13:30 | DRG 300 ==
LOC: ER 13:05 → 4E 17:14 → EROBS 17:14 → 4E 17:55
PROVIDERS: Emergency Medicine; Hospitalist; Nurse Practitioner Family
DX: I82.422 Acute embolism and thrombosis of left iliac vein (principal); T82.818A Embolism due to vascular prosthetic devices, implants and grafts, initial encounter; K56.7 Ileus, unspecified; G35 Multiple sclerosis; E78.5 Hyperlipidemia, unspecified; D64.9 Anemia, unspecified; Y83.1 Surgical operation with implant of artificial internal device as the cause of abnormal reaction of the patient, or of later complication, without mention of misadventure at the time of the procedure; K59.00 Constipation, unspecified; E83.42 Hypomagnesemia; D25.9 Leiomyoma of uterus, unspecified; Z88.8 Allergy status to other drugs, medicaments and biological substances; Z86.711 Personal history of pulmonary embolism; Y92.89 Other specified places as the place of occurrence of the external cause; Z87.891 Personal history of nicotine dependence
CPT/HCPCS: 10084; 27001

== ENCOUNTER 2017-06-05 00:28 | Emergency (ER) | payer OTHER ==
[~2017-06-05] VITALS: Ht 147.3 cm; Wt 47.6 kg
--- NOTE | ~2017-06-05 | EKG ---
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 : 1945 Requested By: Soo Demarco Order Number: [id number] MD: Ajit Shepard Measurements Intervals [place] Rate: 94 P: 47 [place]: 177 QRS: 14 QRSD: 85 T: 36 QT: 345 QTc: 432 Interpretive Statements Sinus rhythm Abnormal R-wave progression, early transition Compared to ECG 04/16/2017 22:27:08 Sinus tachycardia no longer present Inferior Q waves less prominent Electronically Signed On 06-05-2017 9:06:48 CDT by Ajit Shepard [email or web address] <ELECTRONICALLY SIGNED> By: Ajit Shepard MD, [facility] 06/05/1706 0037 Ajit Shepard MD, [facility] /EPI
[~2017-06-05 00:28] MED LIST changes: +BUSPIRONE HCL10 MG PO; +FISH OIL 1,001000 M2 PO; +IRON325 PO; +MAGNESIUM OXID400 MG PO; +SENNA PO; +XARELTO15 MG PO
[2017-06-05 01:05] LABS: ABSOLUTE NEUTROPHILS 2.4 thou/uL (1.4-8.2); BASOPHILS 1.1 % (0.0-2.0); EOSINOPHILS 4.7 % (0.0-3.0); HEMATOCRIT 37.8 % (37.0-47.0); HEMOGLOBIN 12.8 gm/dL (12.0-15.0); LYMPHOCYTES 30.8 % (24.0-44.0); MCH 31.1 pg (26.0-34.0); MCV 91.6 fL (80.0-100.0); MONOCYTES 5.1 % (1.0-8.0); PLATELET COUNT 266 thou/uL (150-400); POLYS 58.3 % (36.0-66.0); RBC 4.12 mil/uL (4.20-5.00); RDW 17.2 % (10.5-14.5); WBC 4.1 thou/uL (4.0-11.0)
[2017-06-05 01:22] LABS: MANUAL DIFF NO
[2017-06-05 01:38] LABS: APTT 26.5 Seconds (24.5-32.8); INR 1.2; PROTIME 12.1 Seconds (9.3-11.4)
[2017-06-05 01:45] LABS: ANION GAP 11 mmol/L (7-16); BUN 17 mg/dL (7-18); CALCIUM 9.7 mg/dL (8.5-10.1); CHLORIDE 102 mmol/L (98-107); CO2 28 mmol/L (21-32); CREATININE 0.8 mg/dL (0.6-1.0); GLUCOSE 107 mg/dL (74-106); POTASSIUM 3.7 mmol/L (3.5-5.1); SODIUM 141 mmol/L (136-145)
[2017-06-05 01:54] LABS: TROPONIN-I < 0.04 ng/mL (<0.04-0.07)
== END 2017-06-05 06:23 | disposition home or self-care (01) ==
LOC: ER 00:28
PROVIDERS: Emergency Medicine
DX: R07.9 Chest pain, unspecified (principal); G35 Multiple sclerosis; Z86.2 Personal history of diseases of the blood and blood-forming organs and certain disorders involving the immune mechanism; Z86.711 Personal history of pulmonary embolism; Z86.718 Personal history of other venous thrombosis and embolism; Z88.8 Allergy status to other drugs, medicaments and biological substances

== ENCOUNTER → 2017-06-13 | Outpatient (CLI) | payer OTHER | LOC: RAD 12:50 | DX: J90 Pleural effusion, not elsewhere classified (principal) ==

== ENCOUNTER 2017-06-28 16:30 | Emergency (ER) | payer OTHER ==
[~2017-06-28] VITALS: Ht 144.8 cm; Wt 47.6 kg
--- NOTE | ~2017-06-28 | EKG ---
[address] [address] ELECTROCARDIOGRAM REPORT Name: ROYAL KINGSLEYN TRINO [facility] [id number] Admission: 06/28/17 Attend Phys: Discharge: 06/28/17 Date of : 49 Report #: [id number] THIS REPORT FOR: //name// 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
[~2017-06-28 16:30] MED LIST changes: -VITAMIN D3400 UNIT; +VITAMIN D3400 UNIT PO
[2017-06-28 17:23] LABS: ANION GAP 5 mmol/L (7-16); BUN 13 mg/dL (7-18); CALCIUM 9.2 mg/dL (8.5-10.1); CHLORIDE 103 mmol/L (98-107); CO2 30 mmol/L (21-32); CREATININE 0.8 mg/dL (0.6-1.0); GLUCOSE 171 mg/dL (74-106); POTASSIUM 3.7 mmol/L (3.5-5.1); SODIUM 138 mmol/L (136-145)
[2017-06-28 17:24] LABS: HEMATOCRIT 37.8 % (37.0-47.0); HEMOGLOBIN 12.4 gm/dL (12.0-15.0); MANUAL DIFF YES; MCH 30.1 pg (26.0-34.0); MCHC 32.7 g/dL (28.0-37.0); MCV 92.3 fL (80.0-100.0); PLATELET COUNT 145 thou/uL (150-400); RDW 16.1 % (10.5-14.5); WBC 7.3 thou/uL (4.0-11.0)
[2017-06-28 17:29] LABS: INR 1.1; PROTIME 11.2 Seconds (9.3-11.4)
[2017-06-28 17:32] LABS: ALBUMIN 3.1 g/dL (3.4-5.0); ALKALINE PHOSPHATASE 131 U/L (46-116); SGOT 51 U/L (15-37); SGPT 72 U/L (30-65); TOTAL BILIRUBIN 0.2 mg/dL (<0.1-1.0); TOTAL PROTEIN 7.3 g/dL (6.4-8.2); TROPONIN-I < 0.04 ng/mL (<0.04-0.07)
[2017-06-28 17:45] LABS: ABSOLUTE NEUTROPHILS 6.4 thou/uL (1.4-8.2); ANISOCYTOSIS 1+; TOTAL CELL COUNT 100
[2017-06-28 17:46] LABS: HYPOCHROMASIA SLIGHT
[2017-06-28 18:46] LABS: URINE BILIRUBIN NEGATIVE (Negative); URINE BLOOD NEGATIVE (Negative); URINE COLOR YELLOW; URINE GLUCOSE-RANDOM* NEGATIVE (Negative); URINE KETONES NEGATIVE (Negative); URINE NITRITE NEGATIVE (Negative); URINE PROTEIN (DIPSTICK) NEGATIVE (Negative); URINE SPECIFIC GRAVITY 1.015 (1.003-1.035); URINE UROBILINOGEN 0.2 E.U./dl (0.2-1.0)
[2017-06-28] MEDS ORDERED: ONDANSETRON HCL4 M2 PO (19:02)
[2017-06-28] MEDS ORDERED: MECLIZINE HCL25 MG PO (19:02)
[2017-06-28] MEDS ORDERED: NORCO 5-325 TA1 EACH PO (19:27)
== END 2017-06-28 19:35 | disposition home or self-care (01) ==
LOC: ER 16:30
PROVIDERS: Physician Assistant
DX: G35 Multiple sclerosis (principal); Z86.718 Personal history of other venous thrombosis and embolism; Z88.8 Allergy status to other drugs, medicaments and biological substances; Z98.890 Other specified postprocedural states